=== PATIENT | male | born 1945 | race Caucasian/White ===

== ENCOUNTER 2019-12-28 00:43 | Observation (INO) | payer OTHER ==
--- OUTSIDE RECORDS SUMMARY | 2019-12-28 00:45 | XMS REPORT | Clinical Summary ---
:1945 Author Organization [facility] Address [address] [place] [address] Care Team Providers Name Role Phone MD Abimael Primary Care Provider Allergies Active Allergy Reactions Severity Noted Date Comments Codeine GI Intolerance 07/12/2017 Medications Medication Sig Dispensed Refills Start Date End Date Status metFORMIN (GLUCOPHAGE) Take 500 mg by 0 Active 500 mg tablet mouth 2 (two) times a day with meals. aspirin (ECOTRIN) 81 MG Take 81 mg by 0 Active enteric coated tablet mouth daily. lisinopril TAKE 1 TABLET BY 30 tablet 0 07/18/2018 A ctive (PRINIVIL,ZESTRIL) 5 mg MOUTH EVERY DAY. tablet metoprolol tartrate TAKE 1 TABLET BY 60 tablet 0 07/18/2018 Active (LOPRESSOR) 25 mg MOUTH TWICE tablet DAILY. atorvastatin (LIPITOR) TAKE 1 TABLET BY 30 tablet 0 07/18/2018 Active 80 MG tablet MOUTH EVERY NIGHT AT BEDTIME. Active Problems Problem Noted Date Hypertension 04/08/2018 Sleep apnea 04/08/2018 Coronary artery disease involving [place] coronary pedro pablo ry of [place] heart 04/08/2018 without angina pectoris Anemia 07/20/2017 NSTEMI (non-ST elevated myocardial infarction) 018 Other secondary hypertension 07/12/2017 DM type 2 (diabetes mellitus, type 2) 07/12/2017 Family History Medical History Relation Name Comments Heart disease Father Heart disease Maternal Grandmother Heart disease Mother Relation Name Status Comments Father Maternal Grandmother Mother Social History Tobacco Use Types Packs/Day Years Used Date Former Smoker Quit: 1971 Smokeless Tobacco: Never Used Alcohol Use Drinks/Week oz/Week Comments No Sex Assigned at Date Recorded Not on file Job Start Date Occupation Industry Not on file Not on file Not on file Travel History Travel Start Travel End No recent travel history available. Last Filed Vital Signs Not on file Plan of Treatment Health Maintenance Due Date Last Done Comments DIABETIC RETINAL EYE EXAM 1945 DIABETIC FOOT EXAM 1955 URINE MICROALBUMIN 1957 COLONOSCOPY SCREENING 1997 SHINGLES VACCINES (#1) 1997 65+ PNEUMOCOCCAL VACCINE (1 of 2 - PCV13) 01/16/2012 INFLUENZA VACCINE 02/07/2020 Implants Implanted Type Area Lockstitch Hemmer Device Shelf Model / Identifier Expiration Serial / Date Lot Lead Pace Jason Mycrdl Unipol Tmpry Streamline - [id number] Cardio vascular N/A: [employer] [place] - [id number] / Implanted: 07/16/2017 at [facility] (Quantity not on file) Imp lants N/A CARDIAC SRGRY / Lead Pace Jason Mycrdl Unipol Tmpry Streamline - [id number] Cardio vascular N/A: [employer] [place] - [id number] / Implanted: 07/16/2017 at [facility] (Quantity not on file) Imp lants N/A CARDIAC SRGRY / Drain Wnd 19fr Rnd Hbls W/ 1/4in Bendbl Trocar Kathryn Morales ke Wht - [id number] Surgical N/A: ETH[employer]ON DIV OF 2231 / Implanted: 07/16/2017 at [facility] (Quantity not on file) Imp lants; N/A SANTOS & / Expanders; SANTOS Extenders; Surgical Wires Drain Wnd 19fr Rnd Hbls W/ 1/4in Bendbl Trocar Kathryn Morales ke Wht - [id number] Surgical N/A: ETH[employer]ON DIV OF 223 / Implanted: 07/16/2017 at [facility] (Quantity not on file) Imp lants; N/A SANTOS & / Expanders; SNATOS Extenders; Surgical Wires [place] [facility] [place] Vasclr Ptfe 1.2x10cm 1.65mm - [id number] Vascular Kaden t N/A: BARD PERIPHERAL 05/05/2022 [id number] / Implanted: 07/16/2017 at [facility] (Quantity not on file) N/A VASCULAR / [id number] Results Not on fileafter 12/27/2018 Insurance Payer Benefit Plan / Subscriber ID Effective Dates Phone Addre ss Type Group MEDICARE MEDICARE PART A xxxxxxxxxx 2012-Present [place] Medicare AND B [facility] xxxxxxxxxxxx 2015-Present PPO [employer] Advance Directives For more information, please contact: [phone] Type Date 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
--- OUTSIDE RECORDS SUMMARY | 2019-12-28 00:45 | XMS REPORT | Continuity of Care Document ---
:1945 Author Organization [facility] t Address [address] [place] [address] Care Team Providers Name Role Phone Abimael SUNG Primary Care Physician Problems Condition Condition Condition Status Onset Resolution Last Treating Co mments Source Name Details Category Date Date Treatment Clinician Date Hypertensi Hypertensi Disease Active 2017-07 [place] on 0 Methodi 00:00: st 00 Sleep Sleep Disease Active 2017-07 [place] apnea apnea 0- Methodi 00:00: st 00 Coronary Coronary Disease Active 2017-07 [place] artery artery 0 Methodi disease disease 00:00: st involving involving 00 [place] coronary coronary artery of artery of [place] heart heart without without angina angina pectoris pectoris Anemia Anemia Disease Active [place] 12 [facility]i 00:00: st 00 NSTEMI NSTEMI Disease Active [place] (non-ST (non-ST 1-04 [facility] elevated elevated 00:00: st myocardial myocardial 00 infarction infarction ) ) Other Other Disease Active [place] secondary secondary 1-04 Meth shanda hypertensi hypertensi 00:00: st on on 00 DM type 2 DM type 2 Disease Active Samuel meyer (diabetes (diabetes 1-04 Meth shanda mellitus, mellitus, 00:00: st type 2) type 2) 00 Allergies, Adverse Reactions, Alerts Allergy Allergy Status Severity Reaction(s) Onset Inactive Treating Comm ents Source Name Type Date Date Clinician Jeff Castillo Active GI [place] ty to Intolerance 1-04 Metho di adverse 00:00: st reaction 00 s to drug Family History Family Member Diagnosis Comments Start Date Stop Date Source Natural father Heart disease Benedict Stahl Maternal grandmother Heart disease H antonia Stahl Natural mother Heart disease [facility] Denominational Social History Social Habit Start Date Stop Date Quantity Comments Source History of Current smoker [facility] aleksodi tobacco use Sex Assigned At [place] M ethodist Alcohol intake 2018-04-08 2018-04-08 Current Benedict Gil thodist 00:00:00 00:00:00 non-drinker of alcohol (finding) Smoking Status Start Date Stop Date Source Former smoker 2018-04-08 00:00:00 2018-04-08 00:00:00 [place] Denominational Medications Ordered Filled Start Stop Current Ordering Indication Dosage Frequency Signature Comments Components Source Medication Medication Date Date Medication? Clinician (SIG) Name Name lisinopril Yes TAKE 1 [place] (PRINIVIL,Z 1-10 TABLET BY Met hodi ESTRIL) 5 00:00: MOUTH st mg tablet 00 EVERY DAY. metoprolol Yes TAKE 1 [place] tartrate 1-10 TABLET BY Method i (LOPRESSOR) 00:00: MOUTH st 25 mg 00 TWICE tablet DAILY. atorvastati Yes TAKE 1 [place] (LIPITOR) 1-10 TABLET BY Met hodi 80 MG 00:00: MOUTH st tablet 00 EVERY NIGHT AT BEDTIME. aspirin 2017-07 Yes 81mg QD Take 81 mg [place] (ECOTRIN) 0-01 by mouth Method i 81 MG 10:53: daily. st enteric 57 coated tablet metFORMIN Yes 500mg Q.5D Take 500 Samuel ston (GLUCOPHAGE 3-27 mg by Methodi ) 500 mg 09:34: mouth 2 st tablet 33 (two) times a day with meals. Procedures This patient has no known procedures. Plan of Care Planned Activity Planned Date Details Comments Source Future Scheduled 2020-02-07 INFLUENZA VACCINE [place] Denominational Test 00:00:00 [code = INFLUENZA VACCINE] Future Scheduled 2012-01-16 65+ PNEUMOCOCCAL [place] Denominational Test 00:00:00 VACCINE (1 of 2 - PCV13) [code = 65+ PNEUMOCOCCAL VACCINE (1 of 2 - PCV13)] Future Scheduled 1997 COLONOSCOPY SCREENING Jay martinez Denominational Test 00:00:00 [code = COLONOSCOPY SCREENING] Future Scheduled 1997 SHINGLES VACCINES (#1) H an[place] Denominational Test 00:00:00 [code = SHINGLES VACCINES (#1)] Future Scheduled 1957 DIABETIC FOOT EXAM [place] Denominational Test 00:00:00 [code = DIABETIC FOOT EXAM] Future Scheduled 1957 URINE MICROALBUMIN [place] Denominational Test 00:00:00 [code = URINE MICROALBUMIN] Future Scheduled 1945 DIABETIC RETINAL EYE Samuel ston Denominational Test 00:00:00 EXAM [code = DIABETIC RETINAL EYE EXAM] Results This patient has no known results.
[2019-12-28 01:12] LABS: Absolute Lymphocytes (CBC) 3.4 K/uL (0.7-4.9); Basophils % 0.7 % (0-1.3); Hematocrit 43.9 % (39.6-49.0); Lymphocytes % 43.4 % (15.3-44.8)
[2019-12-28 01:16] LABS: Protime INR 1.02
[2019-12-28 01:31] LABS: ALT/SGPT 31 U/L (12-78); AST/SGOT 22 U/L (15-37); Alkaline Phosphatase 74 U/L (45-117); BUN Blood Urea Nitrogen 21 mg/dL (7-18); Bicarbonate 28 mmol/L (21-32); Bilirubin Direct 0.2 mg/dL (0-0.2); Bilirubin Total 0.7 mg/dL (0.2-1.0); Glucose Level 111 mg/dL (74-106); Magnesium 2.2 mg/dL (1.8-2.4); NT PRO-BNP 363 pg/mL (<125); Protein, Total 7.5 g/dL (6.4-8.2); Sodium Level 141 mmol/L (136-145); Troponin (Emerg Dept Use Only) < 0.02 ng/mL (0.0-0.045)
--- NOTE | 2019-12-28 01:51 | ER ---
Nurse's Notes [facility] Name: Alex Bowman Jr Age: 74 yrs Sex: Male : 1945 Arrival Date: 12/28/2019 Time: 00:44 Bed 7 Private MD: Ray Salazar R Diagnosis: Other chest pain;Angina pectoris;Type 2 diabetes mellitus Presentation: 12/27 00:50 Chief complaint: Patient states: i have central chest and left arm pain started 3 hours mg2 ago. i am scheduled to do heart cath on Sunday here. I was swabbed for COVID 2 days ago as part of pre-op screening. Coronavirus screen: Proceed with normal triage. Patient denies a cough. Patient reports shortness of breath or difficulty breathing. Patient denies measured and/or subjective temperature greater than 100.4F prior to today's visit. Patient denies travel on a cruise ship or to a country the [facility] currently lists as an affected area. Patient denies contact with known and/or suspected case of COVID-19. Ebola Screen: No symptoms or risks identified at this time. Initial Sepsis Screen: Does the patient meet any 2 criteria? No. Patient's initial sepsis screen is negative. Does the patient have a suspected source of infection? No. Patient's initial sepsis screen is negative. Risk Assessment: Do you want to hurt yourself or someone else? Patient reports no desire to harm self or others. Onset of symptoms was December 27, 2019. 00:50 Method Of Arrival: Ambulatory mg2 00:50 Acuity: ALBA 2 mg2 Historical: - Allergies: 01:00 Codeine; mg2 - Home Meds: 01:07 lisinopril 5 mg OD [Active]; Ecotrin 81 mg OD [Active]; atorvastatin 80 mg oral tab 1 mg2 tab once daily [Active]; metformin 500 mg Oral tab 1 tab 2 times per day [Active]; metoprolol tartrate 25 mg Oral tab 1 tab 2 times per day [Active]; - PMHx: 01:07 Diabetes - NIDDM; High Cholesterol; Hypertension; mg2 - PSHx: 01:00 heart bypass; Cholecystectomy; Tonsillectomy; Hernia repair; mg2 - Immunization history:: Pneumococcal vaccine is up to date, Flu vaccine is not up to date. - Social history:: Smoking status: unknown. - Family history:: not pertinent. Screenin:01 Abuse screen: Denies threats or abuse. Denies injuries from another. Nutritional mg2 screening: No deficits noted. Tuberculosis screening: No symptoms or risk factors identified. Fall Risk IV access (20 points). Assessment: 00:54 Pain: Complains of pain in chest and left arm. mg2 00:57 General: Appears in no apparent distress. comfortable, Behavior is calm, cooperative. mg2 01:01 Pain: Pain does not radiate. Pain began suddenly, 3 hours ago. Neuro: Level of mg2 Consciousness is awake, alert, obeys commands, Oriented to person, place, time, situation. Cardiovascular: Reports chest pain, shortness of breath. Respiratory: Airway is patent Respiratory effort is even, unlabored, Respiratory pattern is regular, symmetrical. GI: No signs and/or symptoms were reported involving the gastrointestinal system. : No signs and/or symptoms were reported regarding the genitourinary system. EENT: No signs and/or symptoms were reported regarding the EENT system. Derm: Skin is intact, is healthy with good turgor, Skin is pink, warm \\T\\ dry. normal. Musculoskeletal: Circulation, motion, and sensation intact. Capillary refill < 3 seconds. 02:38 Reassessment: Patients left her number and would like nurse to call when he gets a mg2 room number. Shyanne Bowman [phone]. 02:40 Reassessment: pt leaving at this time, requests to go upstairs with the patient sg for admission, informed of visitor policy hours of 7am to 4 pm, pt states " well Ill just have to have him moved to [facility] because they are allowing visitors at their hospital.". Vital Signs: 00:50 BP 154 / 76; Pulse 60; Resp 18; Temp 97.6; Pulse Ox 100% on R/A; Weight 102.06 kg; mg2 Height 5 ft. 9 in. (175.26 cm); Pain 3/10; 02:00 BP 122 / 66; Pulse 53; Resp 18; Pulse Ox 98% on R/A; wh 03:00 BP 116 / 54; Pulse 55; Resp 16; Pulse Ox 97% on R/A; wh 00:50 Body Mass Index 33.23 (102.06 kg, 175.26 cm) mg2 ED Course: 00:44 Patient arrived in ED. es 00:44 Katte, Ray, MD is Private Physician. es 00:50 Rubio Infante MD is Attending Physician. jacque 00:50 Inserted saline lock: 20 gauge in right forearm, using aseptic technique. Blood mg2 collected. by ANGELIC Restrepo. Patient maintains SpO2 saturation greater than 95% on room air. 00:52 Bill Patel, RN is Primary Nurse. mg2 00:59 Triage completed. mg2 00:59 Arm band placed on. mg2 01:01 Patient has correct armband on for positive identification. sanitation tank washer on. Pulse mg2 ox on. NIBP on. Door closed. Warm blanket given. 01:01 No provider procedures requiring assistance completed. mg2 01:48 Simba Branch MD is Hospitalizing Provider. [facility] 01:49 XRAY Chest (1 view) In Process Unspecified. EDPA 03:07 Patient admitted, IV remains in place. Administered Medications: 02:03 Drug: Lovenox 1 mg/kg Route: Sub-Q; Site: right lower abdomen; 03:09 Follow up: Response: No adverse reaction 02:03 Drug: Aspirin 81 mg Route: PO; 03:09 Follow up: Response: No adverse reaction 02:04 Drug: Pepcid 20 mg Route: IVP; Site: right forearm; 03:09 Follow up: Response: No adverse reaction Outcome: 01:50 Decision to Hospitalize by Provider. [facility] 03:07 Admitted to Med/surg accompanied by tech, family with patient, via wheelchair, room wh 220, with chart, Report called to Micha Blakely RN 03:07 Condition: stable 03:07 Instructed on the need for admit. 03:15 Patient left the ED. Signatures: Dispatcher [employer] EDPA Kris Vang, RN RN Rubio Infante MD MD cha Salyer, Edna es Habalo, Winsy Bill Patel RN RN mg2
--- NOTE | 2019-12-28 01:51 | EDPHYS ---
Physician Documentation [facility] Name: Alex Bowman Jr Age: 74 yrs Sex: Male : 1945 Arrival Date: 12/28/2019 Time: 00:44 Bed 7 Private MD: Ray Salazar R ED Physician Ruibo Infante HPI: 12/27 01:43 This 74 yrs old Male presents to ER via Ambulatory with complaints of Chest jcaque Pain. 01:43 The patient or guardian reports chest pain that is located primarily in the substernal jacque area. Onset: just prior to arrival. The pain radiates to Associated signs and symptoms: The patient has no apparent associated signs or symptoms. The chest pain is described as a pressure. Duration: The patient or guardian reports a single episode, that is now resolved. Severity of pain: At its worst the pain was moderate in the emergency department the pain has resolved. Historical: - Allergies: 01:00 Codeine; mg2 - Home Meds: 01:07 lisinopril 5 mg OD [Active]; Ecotrin 81 mg OD [Active]; atorvastatin 80 mg oral tab 1 mg2 tab once daily [Active]; metformin 500 mg Oral tab 1 tab 2 times per day [Active]; metoprolol tartrate 25 mg Oral tab 1 tab 2 times per day [Active]; - PMHx: 01:07 Diabetes - NIDDM; High Cholesterol; Hypertension; mg2 - PSHx: 01:00 heart bypass; Cholecystectomy; Tonsillectomy; Hernia repair; mg2 - Immunization history:: Pneumococcal vaccine is up to date, Flu vaccine is not up to date. - Social history:: Smoking status: unknown. - Family history:: not pertinent. ROS: 01:43 Constitutional: Negative for fever, chills, and weight loss, Eyes: Negative for injury, jacque pain, redness, and discharge, ENT: Negative for injury, pain, and discharge, Neck: Negative for injury, pain, and swelling, Respiratory: Negative for shortness of breath, cough, wheezing, and pleuritic chest pain, Abdomen/GI: Negative for abdominal pain, nausea, vomiting, diarrhea, and constipation, Back: Negative for injury and pain, : Negative for injury, bleeding, discharge, and swelling, MS/Extremity: Negative for injury and deformity, Skin: Negative for injury, rash, and discoloration, Neuro: Negative for headache, weakness, numbness, tingling, and seizure, Psych: Negative for depression, anxiety, suicide ideation, homicidal ideation, and hallucinations, Allergy/Immunology: Negative for hives, rash, and allergies, Endocrine: Negative for neck swelling, polydipsia, polyuria, polyphagia, and marked weight changes, Hematologic/Lymphatic: Negative for swollen nodes, abnormal bleeding, and unusual bruising. :43 Cardiovascular: Positive for chest pain. Exam: :43 Constitutional: This is a well developed, well nourished patient who is awake, alert, jacque and in no acute distress. Head/Face: Normocephalic, atraumatic. Eyes: Pupils equal round and reactive to light, extra-ocular motions intact. Lids and lashes normal. Conjunctiva and sclera are non-icteric and not injected. Cornea within normal limits. Periorbital areas with no swelling, redness, or edema. ENT: Nares patent. No nasal discharge, no septal abnormalities noted. Tympanic membranes are normal and external auditory canals are clear. Oropharynx with no redness, swelling, or masses, exudates, or evidence of obstruction, uvula midline. Mucous membranes moist. Neck: Trachea midline, no thyromegaly or masses palpated, and no cervical lymphadenopathy. Supple, full range of motion without nuchal rigidity, or vertebral point tenderness. No Meningismus. Chest/axilla: Normal chest wall appearance and motion. Nontender with no deformity. No lesions are appreciated. Cardiovascular: Regular rate and rhythm with a normal S1 and S2. No gallops, murmurs, or rubs. Normal PMI, no JVD. No pulse deficits. Respiratory: Lungs have equal breath sounds bilaterally, clear to auscultation and percussion. No rales, rhonchi or wheezes noted. No increased work of breathing, no retractions or nasal flaring. Abdomen/GI: Soft, non-tender, with normal bowel sounds. No distension or tympany. No guarding or rebound. No evidence of tenderness throughout. Back: No spinal tenderness. No costovertebral tenderness. Full range of motion. Male : Normal genitalia with no discharge or lesions. Skin: Warm, dry with normal turgor. Normal color with no rashes, no lesions, and no evidence of cellulitis. MS/ Extremity: Pulses equal, no cyanosis. Neurovascular intact. Full, normal range of motion. Neuro: Awake and alert, GCS 15, oriented to person, place, time, and situation. Cranial nerves II-XII grossly intact. Motor strength 5/5 in all extremities. Sensory grossly intact. Cerebellar exam normal. Normal gait. Psych: Awake, alert, with orientation to person, place and time. Behavior, mood, and affect are within normal limits. Vital Signs: 00:50 BP 154 / 76; Pulse 60; Resp 18; Temp 97.6; Pulse Ox 100% on R/A; Weight 102.06 kg; mg2 Height 5 ft. 9 in. (175.26 cm); Pain 3/10; 02:00 BP 122 / 66; Pulse 53; Resp 18; Pulse Ox 98% on R/A; wh 03:00 BP 116 / 54; Pulse 55; Resp 16; Pulse Ox 97% on R/A; wh 00:50 Body Mass Index 33.23 (102.06 kg, 175.26 cm) mg2 MDM: 00:50 Patient medically screened. jacque 01:46 Differential diagnosis: abnormal EKG, acute myocardial infarction, coronary artery jacque disease chest wall pain, hiatal hernia, pleurisy, stable angina, unstable angina. 01:46 Data reviewed: vital signs, nurses notes, lab test result(s), EKG, radiologic studies, jacque plain films. 01:46 HEART Score: History: Highly Suspicious (2), ECG: Normal (0), Age: > or = 65 years (2), jacque Risk Factors: > or = 3 Risk factors for atherosclerotic disease (2), Troponin: < or = 1 x Normal Limit (0). The patient was given aspirin in the Emergency Department. The patient's deep vein thrombosis risk score was calculated as follows: Total Score: 0. This patient was found to be at low risk for a deep vein thrombosis by using the Well's assessment criteria. The patient's pulmonary embolism risk score was calculated as follows: Total Score: 0-2 points. This patient was found to be at low risk for a pulmonary embolism by using the Well's assessment criteria. AUGUSTUS Risk Score: 1 - patient's age is greater or equal to 65 years, 1 - Three or more CAD risk factors, 1- Known CAD, 1 - ASA use in past 7 days, 1 - Recent [<24hrs] Severe Angina, TOTAL SCORE = 5. Data interpreted: youth nutritional monitor: rate is 60 beats/min, rhythm is normal sinus rhythm, Pulse oximetry: on room air is 100 %. Test interpretation: by ED physician or midlevel provider: ECG, plain radiologic studies. 12/27 00:52 Order name: Basic Metabolic Panel; Complete Time: 01:43 mg2 12/27 00:52 Order name: CBC with Diff; Complete Time: 01:43 mg2 12/27 00:52 Order name: LFT's; Complete Time: : mg2 12/27 00:52 Order name: Magnesium; Complete Time: 01:43 mg2 12/27 00:52 Order name: NT PRO-BNP; Complete Time: : mg2 12/27 00:52 Order name: PT-INR; Complete Time: : mg2 12/27 00:52 Order name: Troponin (emerg Dept Use Only); Complete Time: 01:43 mg2 12/27 02:31 Order name: Basic Metabolic Panel EDAZ 12/27 02:31 Order name: Basic Metabolic Panel EDAZ 12/27 02:31 Order name: Basic Metabolic Panel EDAZ 12/27 02:31 Order name: CBC with Automated Diff EDMS 12/27 02:31 Order name: CBC with Automated Diff EDMS 12/27 02:31 Order name: CBC with Automated Diff EDMS 12/27 02:31 Order name: Lipid Profile EDAZ 12/27 00:52 Order name: XRAY Chest (1 view) [facility] 12/27 00:52 Order name: EKG; Complete Time: 00:54 mg2 12/27 02:31 Order name: CONS Physician Consult EDAZ 12/27 02:31 Order name: Heart Healthy EDMS 12/27 02:31 Order name: Echo with Doppler EDMS 12/27 02:31 Order name: EKG Electrocardiogram EDMS 12/27 02:31 Order name: Lipid Profile EDMS 12/27 02:31 Order name: PTT, Activated Partial Thromb EDMS 12/27 02:31 Order name: PTT, Activated Partial Thromb EDMS 12/27 02:31 Order name: PTT, Activated Partial Thromb EDMS 12/27 02:31 Order name: Troponin I EDMS 12/27 02:31 Order name: Troponin I EDMS 12/27 02:31 Order name: Troponin I EDAZ 12/27 00:52 Order name: Cardiac monitoring; Complete Time: 00:56 mg2 12/27 00:52 Order name: EKG - Nurse/Tech; Complete Time: 00:57 mg2 12/27 00:52 Order name: IV Saline Lock; Complete Time: 00:57 mg2 12/27 00:52 Order name: Labs collected and sent; Complete Time: 00:57 mg2 12/27 00:52 Order name: O2 Per Protocol; Complete Time: 00:57 mg2 12/27 00:52 Order name: O2 Sat Monitoring; Complete Time: 00:57 mg2 12/27 02:31 Order name: EKG Electrocardiogram EDMS 12/27 02:31 Order name: EKG Electrocardiogram EDMS Administered Medications: 02:03 Drug: Lovenox 1 mg/kg Route: Sub-Q; Site: right lower abdomen; 03:09 Follow up: Response: No adverse reaction 02:03 Drug: Aspirin 81 mg Route: PO; 03:09 Follow up: Response: No adverse reaction 02:04 Drug: Pepcid 20 mg Route: IVP; Site: right forearm; 03:09 Follow up: Response: No adverse reaction Disposition: 12/28/19 01:50 Hospitalization ordered by Simba Branch for Observation. Preliminary diagnosis are Other chest pain, Angina pectoris, Type 2 diabetes mellitus. - Bed requested for Telemetry/MedSurg (Inpatient). - Status is Observation. - Condition is Stable. - Problem is new. - Symptoms have improved. Signatures: Dispatcher [employer] EDAZ Klaudia Reyes RN RN mw Anderson, Corey, MD MD cha Habalo, Winsy Bill Patel RN RN mg2 Corrections: (The following items were deleted from the chart) 03:00 01:50 Hospitalization Ordered by Simba Branch MD for Observation. Preliminary diagnosis is Other chest pain; Angina pectoris; Type 2 diabetes mellitus. Bed requested for Telemetry/MedSurg (Inpatient). Status is Observation. Condition is Stable. Problem is new. Symptoms have improved. jacque 03:15 03:00 12/28/2019 01:50 Hospitalization Ordered by Simba Branch MD for Observation. Preliminary diagnosis is Other chest pain; Angina pectoris; Type 2 diabetes mellitus. Bed requested for Telemetry/MedSurg (Inpatient). Status is Observation. Condition is Stable. Problem is new. Symptoms have improved. mw
[2019-12-28] MEDS ORDERED: FAMOTIDINE 20 MG/2 ML VIAL IV ONE (02:05)
[2019-12-28] MEDS ORDERED: ASPIRIN 81 MG CHEWABLE TABLET ONE (02:05)
[2019-12-28] MEDS ORDERED: ENOXAPARIN 100 MG/ML SYR SQ ONE (02:05)
[2019-12-28] MEDS ORDERED: ACETAMINOPHEN 500 MG TAB PO PRN (02:26)
[2019-12-28] MEDS ORDERED: MORPHINE 4 MG/ML SYR IV PRN (02:26)
[2019-12-28] MEDS ORDERED: ALPRAZOLAM 0.25 MG TABLET PO PRN (02:26)
[2019-12-28 05:13] VITALS: BMI 34.1
[2019-12-28] MEDS: METOPROLOL TAR 50 MG TAB PO SCH ×2 (06:03→17:29)
--- NOTE | 2019-12-28 06:20 | EKG ---
Test Date: 2019-12-28 Test Time: 00:56:34 Resource Development Manager: SAM MEASUREMENT RESULTS: Intervals: Rate: 57 TN: 208 QRSD: 94 QT: 426 QTc: 414 [place]: P: 22 TN: 208 QRS: 52 T: 17 INTERPRETIVE STATEMENTS: Sinus bradycardia Otherwise normal ECG Compared to ECG 11/07/2010 14:32:42 Sinus rhythm no longer present Electronically Signed On 12-28-19 06:19:44 CDT by Stan Bhatt
[2019-12-28 06:26] LABS: Absolute Lymphocytes (CBC) 3.2 K/uL (0.7-4.9); Basophils % 0.7 % (0-1.3); Hematocrit 38.6 % (39.6-49.0); Lymphocytes % 52.4 % (15.3-44.8); RBC Red Blood Cell Count 4.26 M/uL (4.33-5.43)
[2019-12-28 06:29] LABS: BUN Blood Urea Nitrogen 18 mg/dL (7-18); Bicarbonate 26 mmol/L (21-32); Glucose Level 109 mg/dL (74-106); Sodium Level 141 mmol/L (136-145)
[2019-12-28 06:36] LABS: HDL Cholesterol 36 mg/dL (40-60); LDL Cholesterol, Calculated 28 (<130); Troponin I < 0.02 ng/mL (0.0-0.045)
--- NOTE | 2019-12-28 06:39 | CON ---
Date of Consultation: 12/28/[address] Branch's service on 12/28/2019. I saw the patient on 12/28/2019. Reason For Consultation: Unstable angina. History Of Present Illness: Mr. Bowman is a 74-year-old white male. He has had a history of CABG in t he past. Has diabetes, dyslipidemia, and hypertension. He actually saw Dr. Gordon in my office the last couple of weeks and he was set up for a heart catheterization as an outpatient on 12/29/2019. Xiomara odom has had a positive stress test with severe inferior ischemia recently. He came in with substernal chest pressure radiating to the arms, diaphoresis, shortness of breath. No nausea or vomiting. Parrish ed PND, orthopnea, pedal edema, palpitations, or syncope. Workup so far revealed EKG that showed non specific changes. His BNP was 363. His troponin was negative. His creatinine was normal. Allergies: INCLUDE CODEINE. Review of Systems: Negative. Social History: Negative. Family History: Negative. Medications: At home include aspirin, Lipitor, Zestril, metoprolol, and metformin. Physical Examination: Vital Signs: Stable, afebrile. HEENT: Negative. Neck: Supple. No bruit. Chest: Clear. Cardiac: Revealed a regular rhythm and rate. No murmurs, gallops, or rubs. Abdomen: Benign. Extremities: Revealed no clubbing, cyanosis, or edema. Skin: Dry and intact. Neurologic: He was nonfocal. Pulses were present distally bilaterally. His present regimen includes Lipitor, Lovenox, metoprolol, and Xanax. Impression And Plan: Patient with coronary artery disease status post coronary artery bypass graft, multiple cardiac risk factors including hypertension, dyslipidemia, diabetes, recent positive stress test, symptoms consistent with unstable angina. Asymptomatic now. He was scheduled for an outpatien t heart catheterization on 12/29/2019. We will obviously keep him in the hospital and do that tomorr ow as an inpatient. Patient understands the risk and the benefits of the procedure and he agrees to proceed. The procedure will be done by Dr. Gordon. Continue present management for now otherwise. His blood pressure is fairly well controlled. His diabetes is fairly well controlled and his dyslipi demia is controlled on Lipitor. NB/MODL Voice ID: [id number] Report ID: [id number]
[2019-12-28] MEDS: ASPIRIN EC 81 MG TAB PO SCH (08:21)
--- NOTE | 2019-12-28 12:27 | RAD REPORT ---
EXAM DESCRIPTION: [facility] Single View12/28/2019 1:49 am CLINICAL HISTORY: Chest pain COMPARISON: none FINDINGS: The lungs appear clear of acute infiltrate. The heart is normal size post surgical change s involve the chest IMPRESSION: No acute abnormalities displayed
[2019-12-28] MEDS ORDERED: ENOXAPARIN 100 MG/ML SYR SQ SCH (18:00)
[2019-12-28] MEDS ORDERED: ATORVASTATIN 40 MG TAB PO SCH (21:00)
--- NOTE | 2019-12-29 00:35 | P.HP ---
Certification for Inpatient Patient admitted to: Inpatient With expected LOS: >2 Midnights Patient will require the following post-hospital care: None Practitioner: I am a practitioner with admitting privileges, knowledge of patient current condition, hospital course, and medical plan of care. Services: Services provided to patient in accordance with Admission requirements found in Title 42 Section 412.3 of the Code of Federal Regulations Patient History Date of Service: 12/28/19 Reason for admission: Unstable angina History of Present Illness: Patient is a 74-year-old gentleman who came to the hospital with chest discomfort. Patient has a history of Coronary artery bypass grafting and has been having some chest discomfort for the last month. He was seen by Cardiology and had a stress test which revealed reversible ischemia. Patient was scheduled for cardiac catheterization on Sunday. Patient's chest pain continued to worsen so he came into the ER for further evaluation. In the emergency room, patient had initial troponins and EKG which were unremarkable. Spoke with Cardiology and will admit him for unstable angina and proceed with cardiac catheterization on Sunday. Allergies codeine Adverse Reaction (Verified 12/28/19 03:35) Nausea/Vomiting Home Medications: Aspirin [Ecotrin 81 MG] 81 mg PO DAILY 12/28/19 Atorvastatin Calcium [Lipitor] 80 mg PO BEDTIME 12/28/19 Lisinopril [Zestril] 5 mg PO DAILY 12/28/19 Metformin HCl [Glucophage] 500 mg PO TIDWM 12/28/19 Metoprolol Tartrate 25 mg PO BID 12/28/19 - Past Medical/Surgical History Has patient received pneumonia vaccine in the past: Yes Diabetic: Yes -: diabetes-NIDDM -: hyperlipidemia -: hypertension -: Coronary artery disease -: Coronary artery bypass grafting -: appendectomy -: inguinal hernia repair -: tonsillectomy - Family History Father Family History: Reviewed- Non-Contributory - Social History Smoking Status: Never smoker Alcohol use: No CD- Drugs: No Caffeine use: No Place of Residence: Home Review of Systems 10-point ROS is otherwise unremarkable Physical Examination - Vital Signs Temperature: 97.3 F Blood Pressure: 130/68 Pulse: 56 Respirations: 17 Pulse Ox (%): 98 - Physical Exam General: Alert, In no apparent distress, Oriented x3 HEENT: Atraumatic, PERRLA, Mucous membr. moist/pink, EOMI, Sclerae nonicteric Neck: Supple, 2+ carotid pulse no bruit, No LAD, Without JVD or thyroid abnormality Respiratory: Clear to auscultation bilaterally, Normal air movement Cardiovascular: Regular rate/rhythm, Normal S1 S2, No murmurs Gastrointestinal: Normal bowel sounds, Soft and benign, Non-distended, No tenderness Musculoskeletal: No clubbing, No swelling, No tenderness Integumentary: No rashes Neurological: Normal gait, Normal speech, Normal strength at 5/5 x4 extr, Normal tone, Sensation intact, Cranial nerves 3-12 intact, Normal affect Lymphatics: No axilla or inguinal lymphadenopathy - Studies Laboratory Data (last 24 hrs) 12/28/19 05:59: Troponin I < 0.02, Triglycerides 85, Cholesterol 81, HDL Cholesterol 36 L, Cholesterol/HDL Ratio 2.25 12/28/19 05:59: Sodium 141, Potassium 4.0, BUN 18, Creatinine 0.77, Glucose 109 H 12/28/19 05:59: WBC 6.2 D, Hgb 12.9 L, Hct 38.6 L, Plt Count 179 12/28/19 05:54: APTT 38.5 H 12/28/19 01:00: PT 12.0, INR 1.02 12/28/19 01:00: WBC 7.9 D, Hgb 14.2, Hct 43.9, Plt Count 213 12/28/19 01:00: Sodium 141, Potassium 4.0, BUN 21 H, Creatinine 0.84, Glucose 111 H, Magnesium 2.2, Total Bilirubin 0.7, AST 22, ALT 31, Alkaline Phosphatase 74 Assessment & Plan - Problems (Diagnosis) (1) Unstable angina pectoris Current Visit: Yes Status: Acute (2) Coronary artery disease involving coronary bypass graft Current Visit: Yes Status: Acute - Plan 1. Serial troponins and EKG 2. Cardiology consultation appreciated inpatient to do cardiac catheterization Sunday 3. Continue with nitro for chest pain as needed along with morphine for pain 4. Anti-platelet therapy, anti coagulation, beta-ashish, statin, and O2 as needed 5. Check the lipid profile 6. NPO after midnight and proceed with intervention Sunday morning 7. GI and DVT prophylaxis Discharge Plan: Home Plan to discharge in: Greater than 2 days - Advance Directives Does patient have a Living Will: No Does patient have a Durable POA for Healthcare: No - Code Status/Comfort Care Code Status Assessed: Yes Code Status: Full Code Critical Care: No Time Spent Managing PTS Care (In Minutes): 45
[2019-12-29] MEDS: METOPROLOL TAR 50 MG TAB PO SCH (05:10)
[2019-12-29] MEDS: ASPIRIN EC 81 MG TAB PO SCH (05:10)
[2019-12-29 05:11] LABS: Absolute Lymphocytes (CBC) 2.3 K/uL (0.7-4.9); Hematocrit 41.4 % (39.6-49.0); Lymphocytes % 37.4 % (15.3-44.8); MPV 9.1 fL (7.6-11.3); RBC Red Blood Cell Count 4.54 M/uL (4.33-5.43)
[2019-12-29 05:35] LABS: Potassium 4.2 mmol/L (3.5-5.1)
--- NOTE | 2019-12-29 07:53 | P.PN ---
Subjective Date of Service: 12/29/19 Patient is doing well with no new changes. Symptoms stable. Review of Systems 10-point ROS is otherwise unremarkable Physical Examination - Vital Signs Temperature: 97.6 F Blood Pressure: 127/64 Pulse: 64 Respirations: 17 Pulse Ox (%): 94 - Physical Exam General: Alert, In no apparent distress, Oriented x3 HEENT: Atraumatic, PERRLA, EOMI Neck: Supple, JVD not distended Respiratory: Diminished, Expiratory wheezes Cardiovascular: Regular rate/rhythm, Normal S1 S2, No murmurs Gastrointestinal: Normal bowel sounds, Soft and benign, Non-distended, No tenderness Musculoskeletal: No clubbing, No swelling, No tenderness Integumentary: No rashes Neurological: Normal strength at 5/5 x4 extr, Normal tone, Sensation intact, Cranial nerves 3-12 intact Lymphatics: No axilla or inguinal lymphadenopathy - Studies Medications List Reviewed: Yes Assessment & Plan - Problems (Diagnosis) (1) Unstable angina pectoris Status: Acute (2) Coronary artery disease involving coronary bypass graft Status: Acute - Plan 1. Serial troponins and EKG 2. Cardiology consultation appreciated inpatient to do cardiac catheterization Sunday 3. Continue with nitro for chest pain as needed along with morphine for pain 4. Anti-platelet therapy, anti coagulation, beta-ashish, statin, and O2 as needed 5. Check the lipid profile 6. NPO after midnight and proceed with intervention Sunday morning 7. GI and DVT prophylaxis Discharge Plan: Home Plan to discharge in: Greater than 2 days - Advance Directives Does patient have a Living Will: No Does patient have a Durable POA for Healthcare: No - Code Status/Comfort Care Code Status: Full Code Critical Care: No Time Spent Managing PTS Care (In Minutes): 45
[2019-12-29] MEDS ORDERED: HEPARIN 5000 UNIT/ML 1 ML VIAL ONE ×2 (08:55→08:56)
[2019-12-29] MEDS ORDERED: FENTANYL CITR 100 MCG/2 ML ONE (08:56)
[2019-12-29] MEDS ORDERED: MIDAZOLAM HCL 2 MG/2 ML INJ ONE (08:56)
[2019-12-29] MEDS ORDERED: NICARDIPINE HCL 25 MG/10 ML IV ONE (08:56)
[2019-12-29] MEDS ORDERED: ATROPINE SULF 1 MG/10 ML SYR IV ONE (08:56)
[2019-12-29] MEDS ORDERED: NA CHLORIDE 0.9% 500 ML ONE (09:06)
[2019-12-29 12:42] VITALS: O2SAT 97
--- NOTE | 2019-12-29 16:54 | P.DS ---
Admission Date: 12/28/19 Discharge Date: 12/29/19 Disposition: ROUTINE DISCHARGE Discharge Condition: GOOD Reason for Admission: Unstable angina - Problems (1) Coronary artery disease involving coronary bypass graft Current Visit: Yes Status: Acute (2) Unstable angina pectoris Current Visit: Yes Status: Acute Brief History of Present Illness: Please refer to H&P Hospital Course: Patient is a 74 year old male with known PMH of CAD s/p CABG, HTN AND HLD. He was admitted with chest pain and underwent coronary angiogram. There was a 30% stenosis, no PCI needed. Cardiology recommends medical management. He will be follow up with Cardiology in 4 weeks. Vital Signs/Physical Exam: Temp Pulse Resp BP Pulse Ox 97.3 F 62 16 136/61 97 12/29/19 12:35 12/29/19 12:35 12/29/19 12:35 12/29/19 12:35 12/29/19 12:00 Laboratory Data at Discharge: WBC 6.1 K/uL (4.3-10.9) 12/29/19 04:48 Hgb 13.6 g/dL (13.6-17.9) 12/29/19 04:48 Hct 41.4 % (39.6-49.0) 12/29/19 04:48 Plt Count 189 K/uL (152-406) 12/29/19 04:48 PT 12.0 SECONDS (9.5-12.5) 12/28/19 01:00 INR 1.02 12/28/19 01:00 APTT 35.9 SECONDS (24.3-36.9) 12/29/19 04:48 Sodium 143 mmol/L (136-145) 12/29/19 04:48 Potassium 4.2 mmol/L (3.5-5.1) 12/29/19 04:48 BUN 16 mg/dL (7-18) 12/29/19 04:48 Creatinine 0.88 mg/dL (0.55-1.3) 12/29/19 04:48 Glucose 112 mg/dL (74-106) H 12/29/19 04:48 Magnesium 2.2 mg/dL (1.8-2.4) 12/28/19 01:00 Total Bilirubin 0.7 mg/dL (0.2-1.0) 12/28/19 01:00 AST 22 U/L (15-37) 12/28/19 01:00 ALT 31 U/L (12-78) 12/28/19 01:00 Alkaline Phosphatase 74 U/L (45-117) 12/28/19 01:00 Troponin I < 0.02 ng/mL (0.0-0.045) 12/28/19 13:54 Triglycerides 85 mg/dL (<150) 12/28/19 05:59 Cholesterol 81 mg/dL (<200) 12/28/19 05:59 HDL Cholesterol 36 mg/dL (40-60) L 12/28/19 05:59 Cholesterol/HDL Ratio 2.25 12/28/19 05:59 Home Medications: Aspirin [Ecotrin 81 MG] 81 mg PO DAILY 12/28/19 Atorvastatin Calcium [Lipitor] 80 mg PO BEDTIME 12/28/19 Lisinopril [Zestril] 5 mg PO DAILY 12/28/19 Metformin HCl [Glucophage*] 500 mg PO TIDWM 12/28/19 Metoprolol Tartrate 25 mg PO BID 12/28/19 ALPRAZolam [Xanax*] 0.25 mg PO TID PRN tab 12/29/19 Clopidogrel Bisulfate [Plavix*] 75 mg PO DAILY #30 tablet 12/29/19 Nitroglycerin 0.4 mg SL DIRECTED PRN #100 tab.subl 12/29/19 New Medications: Nitroglycerin 0.4 mg SL DIRECTED PRN #100 tab.subl PRN Reason: chest pain Clopidogrel Bisulfate [Plavix*] 75 mg PO DAILY #30 tablet Diet: AHA
[2019-12-30 11:53] VITALS: BP 127/64; TEMP 97.6
== END 2019-12-29 18:39 | disposition home or self-care (01) ==
LOC: ER 00:43 → ERHOLD 02:26 → 2ND 03:08 → INTOOBSV 11:13 → OBSVTOIN 11:13
PROVIDERS: ADMIT Hospitalist; ATTEND Hospitalist
DX: I25.700 Atherosclerosis of coronary artery bypass graft(s), unspecified, with unstable angina pectoris (principal); I25.82 Chronic total occlusion of coronary artery; E78.5 Hyperlipidemia, unspecified; I10 Essential (primary) hypertension; E11.9 Type 2 diabetes mellitus without complications; Z11.59 Encounter for screening for other viral diseases; Z79.82 Long term (current) use of aspirin; Z79.84 Long term (current) use of oral hypoglycemic drugs; Z79.899 Other long term (current) drug therapy; Z95.1 Presence of aortocoronary bypass graft
CPT/HCPCS: 93005 ×2; 85025 ×3; 80048 ×3; 36415 ×2; 83735; 85610; 80061; 82947 ×2; 80076; 85730 ×2; 84484 ×3; 83880; 71045; 93458; 96372; 96374; 99285; C1893; C1760; J2250; J3010; J1650 ×2; J7040; G0378 ×3; J1644

== ENCOUNTER 2021-11-09 17:42 | Emergency (ER) | payer OTHER ==
--- OUTSIDE RECORDS SUMMARY | 2021-11-09 17:47 | XMS REPORT | Continuity of Care Document ---
:1945 Author Organization [facility] t Address [address] [place] [address] Care Team Providers Name Role Phone None Primary Care Physician Unavailable ZANE Attending Clinician Unavailable BRYANNA ANDERSON Attending Clinician Unavailable CARYL Attending Clinician Unavailable Monica SUNG Attending Clinician Lisa BOONE Attending Clinician Unavailable MONICA Attending Clinician Unavailable ZANE Attending Clinician Unavailable Lab, Fam Pob I Attending Clinician Unavailable Karolyn Butler Attending Clinician Dennis GUZMAN Attending Clinician DENNIS Attending Clinician Unavailable MORGAN Attending Clinician Unavailable Payers Payer Name Policy Type Policy Number Effective Date Expiration Date S baylee MEDICARE PART A AND [id number] 2012 B 00:00:00 COMMERCIAL [id number] 2018 NON-CONTRACT 00:00:00 GENERIC Problems Condition Condition Condition Status Onset Resolution Last Treating Co mments Source Name Details Category Date Date Treatment Clinician Date No known No known Disease [place] active active Health problems problems History of History of Problem Resolve Univers High blood High blood d it y of pressure pressure [facility] Acute pain Acute pain Problem Active U nivers of right of right ity of knee knee [facility] Shoulder Shoulder Problem Active Unive rs pain, pain, ity of right right [facility] History of History of Problem Resolve Univers angina angina d ity of pectoris pectoris [facility] History of History of Problem Resolve Univers Cancer Cancer d ity of [place] [facility] History of History of Problem Resolve Univers Diabetes Diabetes d ity of [place] [facility] History of History of Problem Resolve Univers Heart Heart d ity of attack attack [place] [facility] Allergies, Adverse Reactions, Alerts Allergy Allergy Status Severity Reaction(s) Onset Inactive Treating Comm ents Source Name Type Date Date Clinician Codeine Allergy Active Other UT to 07-12 reaction( Health substan 00:00: s): GI e 00 Intoleran ce NO KNOWN Drug Active Univers ALLERGIE Class ity of [facility] codeine Allergy Active Univers to drug ity of (finding [place] ) [facility] Social History Social Habit Start Date Stop Date Quantity Comments Source Exposure to Not sure [facility] SARS-CoV-2 (event) Tobacco use and 2021-05-26 2021-05-26 Smokeless tobacco [facility] exposure 00:00:00 00:00:00 non-user Alcohol intake 2021-05-26 2021-05-26 Ex-drinker [facility] 00:00:00 00:00:00 (finding) Sex Ass[birth year] At [birth year] [facility] 00:00:00 00:00:00 Smoking Status Start Date Stop Date Source Unknown if ever smoked [facility] Never smoked tobacco [facility] Medications Ordered Filled Start Stop Current Ordering Indication Dosage Frequency Signature Comments Components Source Medication Medication Date Date Medication? Clinician (SIG) Name Name metFORMIN 2020-07 Yes 500mg [id number] Take 500 UT (Glucophage 1-18 [id number] mg by H ealth ) 500 MG 13:17: 3D mouth 3 tablet 30 times a day. metFORMIN 2020-07 Yes 500mg Q.[id number] Take 500 UT (Glucophage 1-18 [id number] mg by H ealth ) 500 MG 13:17: 3D mouth 3 tablet 30 times a day. metFORMIN 2020-07 Yes 500mg Q.[id number] Take 500 UT (Glucophage 1-18 [id number] mg by H ealth ) 500 MG 13:17: 3D mouth 3 tablet 30 times a day. aspirin 81 2020-07 Yes 81mg QD Take 81 mg U T MG EC 07-26 by mouth 1 Health tablet 13:17: (one) time 29 each day. aspirin 81 2020-07 Yes 81mg QD Take 81 mg U T MG EC 1-18 by mouth 1 Health tablet 13:17: (one) time 29 each day. aspirin 81 2020-07 Yes 81mg QD Take 81 mg U T MG EC 1-18 by mouth 1 Health tablet 13:17: (one) time 29 each day. HYDROcodone 2020-07 202- No [id number] 1{tbl} Q6H Take 1 UT -acetaminop 1-18 11-24 tablet by He alth hen ([place]) 00:00: 05:59 mouth 5-325 MG 00 :00 every 6 tablet (six) hours if needed for severe pain for up to 5 days. sulfamethox 2020-07 Yes UT azole-trime 1-16 Health thoprim 00:00: (Bactrim 00 DS) 800-160 MG tablet traMADol 2020-07 Yes UT (Ultram) 50 1-16 Health MG tablet 00:00: 00 sulfamethox 2020-07 Yes UT azole-trime 1-16 Health thoprim 00:00: (Bactrim 00 DS) 800-160 MG tablet traMADol 2020-07 Yes UT (Ultram) 50 1-16 Health MG tablet 00:00: 00 sulfamethox 2020-07 Yes UT azole-trime 1-16 Health thoprim 00:00: (Bactrim 00 DS) 800-160 MG tablet traMADol 2020-07 Yes UT (Ultram) 50 1-16 Health MG tablet 00:00: 00 lisinopril 2020-07 Yes 5mg Take 5 mg UT 5 MG tablet 1-10 by mouth 1 He alth 00:00: (one) time 00 each day in the morning. lisinopril 2020-07 Yes 5mg Take 5 mg UT 5 MG tablet 1-10 by mouth 1 He alth 00:00: (one) time 00 each day in the morning. lisinopril 2020-07 Yes 5mg Take 5 mg UT 5 MG tablet 1-10 by mouth 1 He alth 00:00: (one) time 00 each day in the morning. atorvastati 2020-07 Yes 80mg Take 80 mg UT n (Lipitor) 1-08 by mouth 1 He alth 80 MG 00:00: (one) time tablet 00 each day in the morning. metoprolol 2020-07 Yes 25mg Q.5D Take 25 mg U T tartrate 1-08 by mouth 2 Healt h (Lopressor) 00:00: (two) 25 MG 00 times a tablet day. atorvastati 2020-07 Yes 80mg Take 80 mg UT n (Lipitor) 1-08 by mouth 1 He alth 80 MG 00:00: (one) time tablet 00 each day in the morning. metoprolol 2020-07 Yes 25mg Q.5D Take 25 mg U T tartrate 1-08 by mouth 2 Healt h (Lopressor) 00:00: (two) 25 MG 00 times a tablet day. atorvastati 2020-07 Yes 80mg Take 80 mg UT n (Lipitor) 1-08 by mouth 1 He alth 80 MG 00:00: (one) time tablet 00 each day in the morning. metoprolol 2020-07 Yes 25mg Q.5D Take 25 mg U T tartrate 1-08 by mouth 2 Healt h (Lopressor) 00:00: (two) 25 MG 00 times a tablet day. cyanocobala Yes INJECT 1 UT min 9-30 ML IN THE Health (Vitamin 00:00: MUSCLE B-12) 1000 00 EVERY WEEK MCG/ML injection cyanocobala 0 Yes INJECT 1 UT min 9-30 ML IN THE Health (Vitamin 00:00: MUSCLE B-12) 1000 00 EVERY WEEK MCG/ML injection cyanocobala 2020-0 Yes INJECT 1 UT min 9-30 ML IN THE Health (Vitamin 00:00: MUSCLE B-12) 1000 00 EVERY WEEK MCG/ML injection meclizine Yes TAKE 1 UT (Antivert) 9-18 TABLET BY Heal th 25 MG 00:00: MOUTH tablet 00 EVERY 6 HOURS NEEDED FOR DIZZINESS meclizine 0 Yes TAKE 1 UT (Antivert) 9-18 TABLET BY Heal th 25 MG 00:00: MOUTH tablet 00 EVERY 6 HOURS NEEDED FOR DIZZINESS meclizine 0 Yes TAKE 1 UT (Antivert) 9-18 TABLET BY Heal th 25 MG 00:00: MOUTH tablet 00 EVERY 6 HOURS NEEDED FOR DIZZINESS tiZANidine Yes 4mg Take 4 mg UT (Zanaflex) 8-31 by mouth Healt h 4 MG tablet 00:00: every 00 night. tiZANidine 1-0 Yes 4mg Take 4 mg UT (Zanaflex) 8-31 by mouth Healt h 4 MG tablet 00:00: every 00 night. tiZANidine 2021-0 Yes 4mg Take 4 mg UT (Zanaflex) 8-31 by mouth Healt h 4 MG tablet 00:00: every 00 night. Fe Fum-FA-B 2020-0 Yes 1{capsu Take 1 U T Cmp-C-Zn-Mg 8-27 le} capsule by He alth -Mn-Cu 00:00: mouth 1 (Hemocyte 00 (one) time Plus) 106-1 each day MG capsule in the morning. Fe Fum-FA-B 2020-0 Yes 1{capsu Take 1 U T Cmp-C-Zn-Mg 8-27 le} capsule by He alth -Mn-Cu 00:00: mouth 1 (Hemocyte 00 (one) time Plus) 106-1 each day MG capsule in the morning. Fe Fum-FA-B 2020-0 Yes 1{capsu Take 1 U T Cmp-C-Zn-Mg 8-27 le} capsule by He alth -Mn-Cu 00:00: mouth 1 (Hemocyte 00 (one) time Plus) 106-1 each day MG capsule in the morning. clopidogrel 2021-0 Yes 75mg QD Take 75 mg UT (Plavix) 75 2-03 by mouth 1 He alth MG tablet 00:00: (one) time 00 each day. clopidogrel 2021-0 Yes 75mg QD Take 75 mg UT (Plavix) 75 2-03 by mouth 1 He alth MG tablet 00:00: (one) time 00 each day. clopidogrel 2021-0 Yes 75mg QD Take 75 mg UT (Plavix) 75 2-03 by mouth 1 He alth MG tablet 00:00: (one) time 00 each day. No known No Univers medications ity [facility] No known No [facility] Lisinopril Yes [employer] Uni vers TABS TABS ity [facility] Physici ans metFORMIN metFORMIN Yes [place] [employer] Unive rs HCl TABS HCl TABS ity of [place] [facility] Atorvastati Atorvastati Yes [employer] U nivers n Calcium n Calcium ity o f TABS TABS [place] [facility] Ascriptin Ascriptin Yes [employer] Unive rs 81 MG TBEC 81 MG TBEC ity of [place] [facility] Metoprolol Metoprolol Yes [place] Uni vers Succinate Succinate ity o f ER 25 MG ER 25 MG [place] Oral Tablet Oral Tablet P hysici Extended Extended ans Release 24 Release 24 Hour Hour Clopidogrel Clopidogrel Yes [employer] U nivers Bisulfate Bisulfate ity o f TABS TABS [place] [facility] Procedures Procedure Date / Time Performed Performing Clinician Sourc e XR ANKLE 3+ VIEWS 2021-05-26 19:36:24 Raudel Anderson [facility] RIGHT MR Knee wo contrast 2020-10-18 00:00:00 [facility] [id number] Physicians Encounters Start End Encounter Admission Attending Care Care Encounter Source Date/Time Date/Time Type Type Clinicians Facility Department ID 2021-06-28 [place] [id number] [place] 10:58:38 [facility] 2021-06-15 [place] [id number] [place] 07:44:55 [facility] 2021-05-30 [place] [id number] [place] 09:47:35 [facility] 2021-06-17 2021-06-17 Outpatient RACHEL ANDERSON [facility] [id number] 05:37:00 23:59:00 [facility] 2021-06-14 2021-06-14 Outpatient [facility] [id number] [place] 00:00:00 00:00:00 [facility] [address] 2021-05-26 2021-05-26 Outpatient RACHEL ANDERSON [facility] [id number] 15:29:00 23:59:00 [facility] 2021-05-26 2021-05-26 Office MANAS Anderson [facility] [id number] [place] 13:08:06 16:09:01 Visit Raudel ORTHO AND [id number] Health SPINE [id number] MEDICAL [id number] [address] [address] 2021-05-26 2021-05-26 Telephone MANAS Anderson [facility] [id number] [place] 00:00:00 00:00:00 Raudel BURK [id number] Health SPINE [id number] MEDICAL [id number] [address] [address] 2021-05-26 2021-05-26 Alejandra Timmons [facility] [id number] [place] 00:00:00 00:00:00 GonzalezAlejandra [place] [id number] Health MEDICAL [id number] [address] [id number] 2020-11-01 2020-11-01 Appointmen MANAS ANDERSON [facility] [id number] [facility] 15:45:00 15:45:00 t; Saud STARKS itailyn Brady ANDERSON M.D. Physi ci ans 2020-10-26 2020-10-26 Outpatient NABI, [facility] [id number] [place] 00:00:00 00:00:00 NATA [address] 2020-10-18 2020-10-18 Appointmen MANAS DEGROOT [facility] [id number] Univers 14:45:00 14:45:00 t; IRENE DEGROOT, Trauma i ty of Sally [facility] 2020-10-05 2020-10-05 Outpatient NABI, [facility] [id number] [place] 00:00:00 00:00:00 NATA [address] 2020-07-15 2020-07-15 Laboratory Lab, [facility] Pob I [facility] 1.2. [id number] Univers 13:56:13 14:16:13 Only Ellyn [id number] [facility] [id number] [place] as Professio [phone] [place] [address] [address] 2020-07-15 2020-07-15 Outpatient [facility] [id number] Univers 13:50:00 13:50:00 [id number] ity of [facility] 2020-07-15 2020-07-15 Outpatient [facility] [id number] Univers 13:50:00 13:50:00 [facility] 2020-05-08 2020-05-08 Laboratory Lab, Adc Fam Pob I [facility] 1.2. [id number] Univers 14:30:58 14:50:58 Only Lizette Chen [facility] [id number] [facility] [id number] Wis[place] as Professio [phone] Ma dical nal [address] 2020-05-08 2020-05-08 Outpatient R [facility] [id number] Univers 14:20:00 14:20:00 [id number] [facility] 2020-05-08 2020-05-08 [facility] [id number] Univers 14:20:00 14:20:00 [facility] 2020-03-08 2020-03-08 Appointmen MANAS DEGROOT UTP [id number] Univers 15:00:00 15:00:00 t; IRENE DEGROOT i ty of [facility] 2018-11-01 2018-11-01 Appointmen MANAS MORA UTP [id number] Univers 13:30:00 13:30:00 t; JOYCE MORA M.D. i ty of Brady COOK M.D. Physici ans Results Test Test Test Results Result Source Description Time Comments Comments MR Knee wo 2020-10- EXAMINATION: MRI of the U niversity of contrast [id number] right [place] 13:10:00 contrast.HISTORY: M25.561 Physicians Pain in right knee - M25.561 Pain in right knee;AGE: 75 yearsGENDER: MaleCOMPARISON: There are no radiographs available for review.TECHNIQUE: Multiplanar, multisequence magnetic resonance imaging of the rightknee is performed with an extremity coil without contrast.FINDINGS:Menisci : Medial: Horizontal undersurface tear of the posterior horn of the medialmeniscus with articular surface contact in the red white zone (series 601,image 8 and 9).Lateral: The anterior horn, body, and posterior horn are intact.Ligaments: The anterior cruciate ligament and posterior cruciate ligament areintact. The medial collateral ligament and lateral collateral ligament complexare intact.Extensor mechanism: The extensor mechanism is intact.Muscles: There is normal signal intensity and muscle bulk of the musculature atthe knee.Cartilage: Moderate reactive marrow change in the inferior, lateral femoraltrochlea and medial patellar facet The patellofemoral articular cartilagedemonstrates grade 3/4 chondromalacia in the lateral femoral trochlea andmedial patellar facet.. The medial tibiofemoral articular cartilage is intact..The lateral tibiofemoral articular cartilage is intact..Bone: There are no acute fractures. There are no suspicious bone marrowreplacing lesions.Soft tissues: There is a moderate knee joint effusion. Small Wallis's cystcontaining a 4 mm calcified loose body.IMPRESSION:1. 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 Horizontal undersurface tear of the posterior horn of the medial meniscuswith articular surface contact in the red-white zone.3. Moderate knee joint effusion. Small Wallis's cyst containing a 4 mm calcifiedloose body.--Read by: Gary Littlejohn MDDictated Date/time: 10/28/20 23:18Electronically Signed by: Gary Littlejohn MD 10/28/2122:25FINAL REPORT MR Knee wo contrast [id number] 2020-10-28 13:06:00 Test Item Value Reference Range Interpretation Comme nts Knee wo contrast MR (test code = Knee wo Cancel Reason: Duplicate O rder contrast MR) [facility][U] XRAY KNEE 3 VWS RIGHT [id number] 12:23:00 Images acquired, not reported on this accession number.[facility]
[2021-11-09 18:26] LABS: Absolute Lymphocytes (CBC) 3.1 K/uL (0.7-4.9); Lymphocytes % 29.1 % (15.3-44.8); MPV 7.8 fL (7.6-11.3); RBC Red Blood Cell Count 4.38 M/uL (4.33-5.43)
[2021-11-09 18:44] LABS: Magnesium 2.1 mg/dL (1.8-2.4); Potassium 4.3 mmol/L (3.5-5.1)
--- NOTE | 2021-11-09 19:46 | EDPHYS ---
Physician Documentation [facility] Name: Alex Bomwan Jr Age: 76 yrs Sex: Male : 1945 Arrival Date: 11/09/2021 Time: 17:43 Bed 5 Private MD: Ray Salazar R ED Physician Víctor Alexis HPI: 11/09 18:15 This 76 yrs old Male presents to ER via Ambulatory with complaints of Leg Pain - cp radiating to other and upwards. 18:15 The patient presents with pain, that is acute. The complaints affect the medial aspect cp of right thigh. 18:15 Context: resulted from an unknown cause, the patient can fully bear weight, the patient cp is able to ambulate, without difficulty, Problem is a result from a previous injury: No. Onset: The symptoms/episode began/occurred suddenly, today, now resolved. Associated signs and symptoms: Pertinent negatives fever, numbness, warmth, weakness, shortness of breath. Patient reports sudden pain to right upper leg earlier today that is now resolved. Patient was concerned about possible DVT and heart attack. Patient denies any chest pain today. Reports episode of chest pain days ago after getting upset. Pain resolved after taking nitro. Historical: - Allergies: 17:58 Codeine; jl7 - Home Meds: 17:58 atorvastatin 80 mg Oral tab 1 tab once daily [Active]; metformin 500 mg Oral tab 1 tab jl7 2 times per day [Active]; metoprolol tartrate 25 mg Oral tab 1 tab 2 times per day [Active]; Ecotrin 81 mg OD [Active]; lisinopril 5 mg OD [Active]; - PMHx: 17:58 Diabetes - NIDDM; High Cholesterol; Hypertension; jl7 - Social history:: Smoking status: Patient denies any tobacco usage or history of. ROS: 18:20 MS/extremity: Positive for pain, of the right upper leg, Negative for injury or acute cp deformity, decreased range of motion, paresthesias, swelling, tenderness. 18:20 Eyes: Negative for injury, pain, redness, and discharge. cp 18:20 Constitutional: Negative for body aches, chills, fever, poor PO intake. 18:20 ENT: Negative for drainage from ear(s), ear pain, sore throat, difficulty swallowing, difficulty handling secretions. 18:20 Neck: Negative for pain with movement, pain at rest. 18:20 Cardiovascular: Negative for chest pain, edema, palpitations. 18:20 Respiratory: Negative for cough, shortness of breath, wheezing. 18:20 Abdomen/GI: Negative for abdominal pain, nausea, vomiting, and diarrhea. 18:20 Back: Negative for pain at rest, pain with movement. 18:20 Skin: Negative for rash. 18:20 Neuro: Negative for altered mental status, headache, numbness, tingling, weakness. 18:20 All other systems are negative. Exam: 18:05 ECG was reviewed by the Attending Physician. cp 18:25 Constitutional: The patient appears in no acute distress, alert, awake, cp non-diaphoretic, non-toxic, well developed, well nourished. 18:25 Head/Face: Normocephalic, atraumatic. cp 18:25 Eyes: Periorbital structures: appear normal, Conjunctiva: normal, no exudate, no injection, Sclera: no appreciated abnormality, Lids and lashes: appear normal, bilaterally. 18:25 ENT: External ear(s): are unremarkable, Nose: is normal, Mouth: Lips: moist, Oral mucosa: moist, Posterior pharynx: Airway: no evidence of obstruction, patent. 18:25 Chest/axilla: Inspection: normal. 18:25 Cardiovascular: Rate: normal, Rhythm: regular, Edema: is not appreciated, JVD: is not appreciated. 18:25 Respiratory: the patient does not display signs of respiratory distress, Respirations: normal, no use of accessory muscles, no retractions, labored breathing, is not present, Breath sounds: are clear throughout, no decreased breath sounds, no stridor, no wheezing. 18:25 Abdomen/GI: Inspection: abdomen appears normal, Palpation: abdomen is soft and non-tender, in all quadrants. 18:25 Back: pain, is absent, ROM is normal. 18:25 Skin: cellulitis, is not appreciated, no rash present. 18:25 Neuro: Orientation: to person, place \T\ time. Mentation: is normal, Motor: moves all fours, strength is normal, Sensation: is normal. Vital Signs: 17:56 BP 163 / 63; Pulse 79; Resp 17; Temp 97.8; Pulse Ox 99% on R/A; Weight 99.79 kg; Height jl7 5 ft. 9 in. (175.26 cm); Pain 1/10; 19:32 BP 120 / 56; Pulse 63; Resp 16; Pulse Ox 97% on R/A; Pain 0/10; lg3 19:50 BP 134 / 61; Pulse 67; Resp 18; Pulse Ox 100% on R/A; tw5 17:56 Body Mass Index 32.49 (99.79 kg, 175.26 cm) jl7 MDM: 17:57 Patient medically screened. cp 19:44 Data reviewed: vital signs, nurses notes, lab test result(s), radiologic studies, cp ultrasound. Test interpretation: by ED physician or midlevel provider: ECG. Counseling: I had a detailed discussion with the patient and/or guardian regarding: the historical points, exam findings, and any diagnostic results supporting the discharge/admit diagnosis, lab results, radiology results, the need for outpatient follow up, for definitive care, an medical claims manager, to return to the emergency department if symptoms worsen or persist or if there are any questions or concerns that arise at home. 05 18:14 Order name: Basic Metabolic Panel; Complete Time: 19:15 cp 05/04 19:15 Interpretation: Normal except: GLUC 120; BUN 23; GFR 82. cp 05/04 18:14 Order name: CBC with Diff; Complete Time: 19:15 cp 05/04 19:15 Interpretation: Normal except: HGB 9.4; HCT 30.0; MCV 68.4; MCH 21.4; MCHC 31.3; RDW cp 17.1. 11/09 18:14 Order name: Magnesium; Complete Time: 19:15 cp 0504 18:14 Order name: Troponin HS; Complete Time: 19:15 cp 05/04 19:16 Interpretation: Troponin HS 5.0; Reviewed. cp 11/09 18:14 Order name: EKG; Complete Time: 18:15 cp 0504 18:14 Order name: US Extremity Venous W Compression Warner cp 05 18:14 Order name: Cardiac monitoring; Complete Time: 18:18 cp 05 18:14 Order name: EKG - Nurse/Tech; Complete Time: 18:18 cp 05 18:14 Order name: IV Saline Lock; Complete Time: 18:18 cp 05 18:14 Order name: Labs collected and sent; Complete Time: 18:18 cp 11/09 18:14 Order name: O2 Per Protocol; Complete Time: 18:18 cp 11/09 18:14 Order name: O2 Sat Monitoring; Complete Time: 18:18 cp EC:05 Rate is 68 beats/min. Rhythm is regular. [place] interval is normal. QRS interval is normal. cp QT interval is normal. T waves are Inverted in leads III, aVR. Interpreted by me. Reviewed by me. Administered Medications: No medications were administered Disposition: 11/10 00:28 Co-signature as Attending Physician, Víctor Alexis MD I agree with the assessment and kdr plan of care. Disposition Summary: 11/09/21 19:46 Discharge Ordered Location: Home cp Problem: new cp Symptoms: have improved cp Condition: Stable cp Diagnosis - Pain in right leg cp - Anemia, unspecified cp Followup: cp - With: Ray Salazar MD - When: 1 - 2 days - Reason: recheck anemia Discharge Instructions: - Discharge Summary Sheet cp - Anemia cp - Musculoskeletal Pain cp - Heat Therapy cp Forms: - Medication Reconciliation Form cp - Thank You Letter cp - Antibiotic Education cp - Prescription Opioid Use cp Signatures: Dispatcher [employer] EDVíctor Gutiérrez MD MD kdr Page, Corey, PA PA cp Leal, Jahala, RN RN jl7
--- NOTE | 2021-11-09 19:46 | ER ---
Nurse's Notes [facility] Name: Alex Bowman Jr Age: 76 yrs Sex: Male : 1945 Arrival Date: 11/09/2021 Time: 17:43 Bed 5 Private MD: Ray Salazar R Diagnosis: Pain in right leg;Anemia, unspecified Presentation: 11/09 17:56 Chief complaint: Patient states: Right inner thigh leg cramps since 1529, had a bypass jl7 years ago and was told that might be a sign of a heart attack, denies chest pain. Coronavirus screen: At this time, the client does not indicate any symptoms associated with coronavirus-19. Ebola Screen: No symptoms or risks identified at this time. Initial Sepsis Screen: Does the patient meet any 2 criteria? No. Patient's initial sepsis screen is negative. Does the patient have a suspected source of infection? No. Patient's initial sepsis screen is negative. Risk Assessment: Do you want to hurt yourself or someone else? Patient reports no desire to harm self or others. Onset of symptoms was November 09, 2021 at 15:30. Care prior to arrival: None. 17:56 Method Of Arrival: Ambulatory 7 17:56 Acuity: ALBA 3 jl7 Triage Assessment: 17:58 General: Appears in no apparent distress. uncomfortable, Behavior is calm, cooperative, jl7 appropriate for age. Pain: Complains of pain in medial aspect of right thigh Pain currently is 1 out of 10 on a pain scale. at worst was 10 out of 10 on a pain scale. Historical: - Allergies: 17:58 Codeine; jl7 - Home Meds: 17:58 atorvastatin 80 mg Oral tab 1 tab once daily [Active]; metformin 500 mg Oral tab 1 tab jl7 2 times per day [Active]; metoprolol tartrate 25 mg Oral tab 1 tab 2 times per day [Active]; Ecotrin 81 mg OD [Active]; lisinopril 5 mg OD [Active]; - PMHx: 17:58 Diabetes - NIDDM; High Cholesterol; Hypertension; jl7 - Social history:: Smoking status: Patient denies any tobacco usage or history of. Screenin:22 Abuse screen: Denies threats or abuse. Nutritional screening: No deficits noted. jh6 Tuberculosis screening: No symptoms or risk factors identified. Fall Risk Assessment: 18:21 General: Appears in no apparent distress. Behavior is calm, cooperative. Pain: jh6 Complains of pain in right leg and left leg Pain currently is 4 out of 10 on a pain scale. Quality of pain is described as aching, Pain began suddenly. Cardiovascular: No deficits noted. Rhythm is sinus rhythm. 19:30 General: Appears in no apparent distress. comfortable, Behavior is calm, cooperative. lg3 Pain: Denies pain. Neuro: No deficits noted. Robertson Agitation-Sedation Scale (RASS): 0 - Alert and Calm Level of Consciousness is awake, alert, obeys commands, Oriented to person, place, time, situation. Cardiovascular: No deficits noted. Denies chest pain, shortness of breath. Respiratory: No deficits noted. Airway is patent Trachea midline Respiratory effort is even, unlabored, Respiratory pattern is regular, symmetrical. GI: No deficits noted. No signs and/or symptoms were reported involving the gastrointestinal system. GI: No deficits noted. No signs and/or symptoms were reported involving the gastrointestinal system. : No deficits noted. No signs and/or symptoms were reported regarding the genitourinary system. EENT: No deficits noted. No signs and/or symptoms were reported regarding the EENT system. Derm: No deficits noted. No signs and/or symptoms reported regarding the dermatologic system. Skin is intact, is healthy with good turgor, Skin is dry, Skin is pink, warm \T\ dry. Musculoskeletal: No deficits noted. Circulation, motion, and sensation intact. Capillary refill < 3 seconds, Range of motion: intact in all extremities. Vital Signs: 17:56 BP 163 / 63; Pulse 79; Resp 17; Temp 97.8; Pulse Ox 99% on R/A; Weight 99.79 kg; Height jl7 5 ft. 9 in. (175.26 cm); Pain 1/10; 19:32 BP 120 / 56; Pulse 63; Resp 16; Pulse Ox 97% on R/A; Pain 0/10; lg3 19:50 BP 134 / 61; Pulse 67; Resp 18; Pulse Ox 100% on R/A; tw5 17:56 Body Mass Index 32.49 (99.79 kg, 175.26 cm) jl7 ED Course: 17:43 Patient arrived in ED. am2 17:44 Ray Salazar MD is Private Physician. am2 17:52 Rubio Pederson PA is PHCP. cp 17:52 Tim Lam MD is Attending Physician. cp 17:58 Triage completed. jl7 17:58 Arm band placed on right wrist. jl7 18:11 Patient has correct armband on for positive identification. Placed in gown. Bed in low mh5 position. Call light in reach. Side rails up X 1. Adult w/ patient. Warm blanket given. groundwater monitoring technician on. Pulse ox on. NIBP on. 18:11 Initial lab(s) drawn, by me, sent to lab. EKG done, by ED staff, reviewed by Tim Lam MD. Inserted saline lock: 20 gauge in right forearm, using aseptic technique. Blood collected. 18:21 Kisha Hinds, RN is Primary Nurse. ph 18:21 Basic Metabolic Panel Sent. mh5 18:21 CBC with Diff Sent. mh5 18:21 Magnesium Sent. mh5 18:21 Troponin HS Sent. mh5 18:22 No provider procedures requiring assistance completed. jh6 19:05 Primary Nurse role handed off by Kisha Hinds RN tw5 19:05 Elisa Enriquez is Primary Nurse. tw5 19:19 Víctor Alexis MD is Attending Physician. cp 19:25 US Extremity Venous W Compression Warner In Process Unspecified. EDMS 19:45 Ray Salazar MD is Referral Physician. cp 19:51 IV discontinued, intact, bleeding controlled, No redness/swelling at site. Pressure tw5 dressing applied. Administered Medications: No medications were administered Outcome: 19:46 Discharge ordered by MD. cp 19:51 Discharged to home ambulatory, with family. tw5 19:51 Condition: good 19:51 Discharge instructions given to patient, Instructed on discharge instructions, follow up and referral plans. Demonstrated understanding of instructions, follow-up care. 19:53 Patient left the ED. tw5 Signatures: Dispatcher [employer] EDCA Kisha Hinds, ANGELIC ATWOOD Rubio Pederson PA PA cp Martinez, Maria 5 Kavon Katz RN RN jl7 Yovana Swift am2 Karen Bellamy RN RN lg3 Elisa Enriquez tw5 Namrata Ellis RN RN jh6
--- NOTE | 2021-11-09 19:46 | RAD REPORT ---
EXAM DESCRIPTION: US - Extrem Venous W Compress Warner - 11/09/2021 7:23 pm CLINICAL HISTORY: PAIN COMPARISON: <Comparisons> TECHNIQUE: Real-time sonographic evaluation of the lower extremity deep venous systems was performed using color Doppler, grayscale, and compression. FINDINGS: Bilateral lower extremities. Normal compressibility, flow augmentation, phasic flow and spontaneous flow is identified in both the left and right lower extremity deep venous systems. No intraluminal filling defects seen. IMPRESSION: No DVT in either lower extremity.
[2021-11-09 21:00] VITALS: TEMP 97.8
[2021-11-09 21:03] VITALS: BP 134/61; O2SAT 100
--- NOTE | 2021-11-10 14:12 | EKG ---
Test Date: 2021-11-09 Test Time: 17:59:33 [employer] Faculty Member: MARKELL MEASUREMENT RESULTS: Intervals: Rate: 68 IN: 182 QRSD: 86 QT: 408 QTc: 433 [place]: P: 24 IN: 182 QRS: 58 T: 45 INTERPRETIVE STATEMENTS: Normal sinus rhythm Normal ECG Compared to ECG 12/29/2019 14:46:09 Right-axis deviation no longer present Myocardial infarct finding no longer present Electronically Signed On 11-10-21 14:11:26 CDT by Mark Gordon
== END 2021-11-09 19:53 | disposition home or self-care (01) ==
LOC: ER 17:42
DX: M79.651 Pain in right thigh (principal); D64.9 Anemia, unspecified; E11.9 Type 2 diabetes mellitus without complications; E78.00 Pure hypercholesterolemia, unspecified; I10 Essential (primary) hypertension; Z88.5 Allergy status to narcotic agent
CPT/HCPCS: 36415; 80048; 83735; 84484; 85025; 93005; 93970; 99284